=== PATIENT | female | born 1990 | race Caucasian/White ===

== ENCOUNTER 2018-08-25 14:07 | Emergency (ER) | payer MEDICAID ==
[~2018-08-25] VITALS: Ht 149.9 cm; Wt 75.1 kg
[~2018-08-25 14:07] MED LIST: BAC10T PO; CIPR-259 PO; DEXL30CA3 PO; FLUT10SP; HYDR1TAB PO; LAMO150T2 PO; LOPE1TAB46 PO; MIRT15TA PO; birth control PO
[2018-08-25 15:24] VITALS: BP 114/67
[2018-08-25] MEDS ORDERED: DIPH-518 PO (15:34)
[2018-08-25] MEDS ORDERED: diphenhydrAMINE 25 MG/10 ML UD oral solution PO ONE (15:35)
--- NOTE | 2018-08-25 15:57 | NUR ---
Patient seen and assessed by provider.
== END 2018-08-25 15:58 | disposition home or self-care (01) ==
LOC: ER 14:07
DX: J02.9 Acute pharyngitis, unspecified (principal); J45.909 Unspecified asthma, uncomplicated; G89.29 Other chronic pain; M54.9 Dorsalgia, unspecified; Z88.2 Allergy status to sulfonamides; Z88.8 Allergy status to other drugs, medicaments and biological substances; Z88.1 Allergy status to other antibiotic agents; Z91.040 Latex allergy status
CPT/HCPCS: 99282; Q0163

== ENCOUNTER 2018-11-24 15:51 | Emergency (ER) | payer MEDICAID ==
[~2018-11-24] VITALS: Ht 149.9 cm; Wt 79.1 kg
[~2018-11-24 15:51] MED LIST changes: +DIPH-518 PO
[2018-11-24 15:58] VITALS: BP 119/73
[2018-11-24] MEDS ORDERED: DYN500C PO (16:54)
== END 2018-11-24 17:06 | disposition home or self-care (01) ==
LOC: ER 15:52
DX: N61.0 Mastitis without abscess (principal); J45.909 Unspecified asthma, uncomplicated; G89.29 Other chronic pain; Z88.2 Allergy status to sulfonamides; Z88.1 Allergy status to other antibiotic agents; Z91.040 Latex allergy status; Z79.899 Other long term (current) drug therapy
CPT/HCPCS: 99283

== ENCOUNTER 2020-06-23 17:03 | Emergency (ER) | payer MEDICAID ==
[~2020-06-23] VITALS: Ht 149.9 cm; Wt 96.0 kg
[~2020-06-23 17:03] MED LIST changes: +MIRT-116 PO; -MIRT15TA PO
[2020-06-23 17:12] VITALS: BP 140/81
[2020-06-23] MEDS ORDERED: acetaminophen 325mg tablet PO ONE (17:20)
== END 2020-06-23 18:16 | disposition home or self-care (01) ==
LOC: ER 17:03
DX: S93.431A Sprain of tibiofibular ligament of right ankle, initial encounter (principal); M25.572 Pain in left ankle and joints of left foot; J45.909 Unspecified asthma, uncomplicated; G89.29 Other chronic pain; F31.9 Bipolar disorder, unspecified; Z98.890 Other specified postprocedural states; Z72.89 Other problems related to lifestyle; Z88.2 Allergy status to sulfonamides; Z88.1 Allergy status to other antibiotic agents; Z88.8 Allergy status to other drugs, medicaments and biological substances; Z91.040 Latex allergy status; Z79.899 Other long term (current) drug therapy; X58.XXXA Exposure to other specified factors, initial encounter; Y93.89 Activity, other specified; Y92.89 Other specified places as the place of occurrence of the external cause; Y99.8 Other external cause status
CPT/HCPCS: 29515; 73610; 99284

== ENCOUNTER 2020-12-01 20:30 | Emergency (ER) | payer MEDICAID ==
[~2020-12-01] VITALS: Ht 152.4 cm; Wt 100.0 kg
[2020-12-01 20:41] VITALS: BP 135/73
[2020-12-01] MEDS ORDERED: ondansetron 4mg rapidly disintigrating tab PO ONE (22:50)
[2020-12-01] MEDS ORDERED: ketorolac tromethamine 15mg/ml inj. IM ONE (22:50)
[2020-12-01] MEDS ORDERED: HYDROcodone/acetaminophen 5mg/325mg tablet PO ONE (22:50)
[2020-12-01] MEDS ORDERED: HYDR-3965 PO (23:05)
[2020-12-01] MEDS ORDERED: ONDA4TAB6 PO (23:05)
== END 2020-12-02 00:13 | disposition home or self-care (01) ==
LOC: ER 20:30
DX: S82.832A Other fracture of upper and lower end of left fibula, initial encounter for closed fracture (principal); M25.572 Pain in left ankle and joints of left foot; J45.909 Unspecified asthma, uncomplicated; G89.29 Other chronic pain; F31.9 Bipolar disorder, unspecified; Z98.890 Other specified postprocedural states; Z72.89 Other problems related to lifestyle; Z88.2 Allergy status to sulfonamides; Z88.1 Allergy status to other antibiotic agents; Z88.6 Allergy status to analgesic agent; Z88.8 Allergy status to other drugs, medicaments and biological substances; Z91.040 Latex allergy status; Z79.899 Other long term (current) drug therapy; W18.39XA Other fall on same level, initial encounter; Y93.01 Activity, walking, marching and hiking; Y92.89 Other specified places as the place of occurrence of the external cause; Y99.8 Other external cause status
CPT/HCPCS: 73610; 99283

== ENCOUNTER 2023-07-29 13:23 | Emergency (ER) | payer MEDICAID ==
[~2023-07-29] VITALS: Ht 151.1 cm; Wt 94.5 kg
[~2023-07-29 13:23] MED LIST changes: -MIRT-116 PO; +MIRT-142 PO; +ONDA4TAB6 PO
[2023-07-29 14:12] VITALS: BP 123/79; PULSE 102; RESP 20; TEMP 97.9; O2SAT 98
[2023-07-29] MEDS ORDERED: CefTRIAXone 1000mg IM Kit (w/lidocaine diluent) IM STA (14:20)
[2023-07-29] MEDS ORDERED: dexamethasone sod phosphate 10mg/ml inj IM STA (14:22)
[2023-07-29] MEDS ORDERED: AZIT250T82 PO (14:36)
[2023-07-29] MEDS ORDERED: IBUP-1984 PO (14:36)
[2023-07-29] MEDS ORDERED: LIDO20SO16 PO (14:36)
[2023-07-29 16:00] LABS: STREP A SCREEN NEGATIVE (Neg)
== END 2023-07-29 17:35 | disposition home or self-care (01) ==
LOC: ER 13:24
DX: J02.9 Acute pharyngitis, unspecified (principal); J45.909 Unspecified asthma, uncomplicated; G89.29 Other chronic pain; M54.9 Dorsalgia, unspecified; F31.9 Bipolar disorder, unspecified; Z88.2 Allergy status to sulfonamides; Z88.8 Allergy status to other drugs, medicaments and biological substances; Z91.040 Latex allergy status; Z88.6 Allergy status to analgesic agent
CPT/HCPCS: 87081; 87880; 96372; 99284; J0696; J1100